=== PATIENT | female | born 1970 | race African-American/Black ===

== ENCOUNTER 2018-09-01 15:41 | Emergency (ER) | payer BC ==
[2018-09-01 16:01] VITALS: BP 127/75; PULSE 78; TEMP 97.8; BMI 30.5
--- NOTE | 2018-09-01 16:21 | PDOC ---
History of Present Illness - General Chief Complaint: Pain Stated Complaint: RT FOOT PAIN Time Seen by Provider: 09/01/18 16:14 History Source: Patient Exam Limitations: No Limitations - History of Present Illness Initial Comments: 09/01/18 16:18 While at work yesterday, school, twisted her right ankle. States has worsened today 09/01/18 16:20 Occurred: reports: yesterday Severity: reports: mild, moderate Pain Location: reports: lower extremity (right ankle ) Loss of Consciousness: no loss of consciousness Associated Symptoms (Fall): denies symptoms Past History - Travel Traveled outside of the country in the last 30 days: No Close contact w/someone who was outside of country & ill: No - Past Medical History Allergies/Adverse Reactions: Allergies Allergy/AdvReac Type Severity Reaction Status Date / Time Sulfa (Sulfonamide AdvReac Intermediate Vomiting Verified 09/01/18 15:55 Antibiotics) Home Medications: Ambulatory Orders NK [No Known Home Medication] 09/01/18 COPD: No HTN: Yes - Immunization History Immunization Up to Date: No - Suicide/Smoking/Psychosocial Hx Smoking History: Never smoked Hx Alcohol Use: No Drug/Substance Use Hx: No Review of Systems - Review of Systems Able to Perform ROS?: Yes Is the patient limited Peruvian proficient: Yes Constitutional: Yes: Symptoms Reported, See HPI HEENTM: No: Symptoms Reported Respiratory: No: Symptoms reported Musculoskeletal: Yes: Symptoms Reported, See HPI, Joint Pain, Joint Swelling All Other Systems: Reviewed and Negative *Physical Exam - Vital Signs Last Vital Signs Temp Pulse Resp BP Pulse Ox 97.8 F 78 18 127/75 98 09/01/18 15:56 09/01/18 15:56 09/01/18 15:56 09/01/18 15:56 09/01/18 15:56 - Physical Exam General Appearance: Yes: Nourished, Appropriately Dressed, Apparent Distress, Mild Distress HEENT: positive: GEOVANNA, Normal ENT Inspection, TMs Normal, Pharynx Normal, Nasal Congestion Respiratory/Chest: positive: Lungs Clear Musculoskeletal: positive: Normal Inspection, CVA Tenderness Extremity: positive: Normal Capillary Refill, Normal Range of Motion (limited secondary to tenderness to lateral malleolus, no crepitus or step-off negative squeeze test, no point tenderness to navicular or fifth metatarsal. Is ambulatory but walks with limp. 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 Marcos, Aircast provided and patient will obtain cane at pharmacy. *DC/Admit/Observation/Transfer Diagnosis at time of Disposition: Right ankle sprain Qualifiers: Encounter type: initial encounter Involved ligament of ankle: unspecified ligament Qualified Code(s): S93.401A - Sprain of unspecified ligament of right ankle, initial encounter - Discharge Dispostion Disposition: HOME Condition at time of disposition: Stable Decision to Admit order: No - Referrals Referrals: Tru Joy MD [Primary Care Provider] - Hugo Jain MD [Staff Physician] - - Patient Instructions Printed Discharge Instructions: DI for Ankle Sprain Additional Instructions: Rest, ice to area on and off for 15 minutes 4-6 times a day Avoid heavy lifting or exercise until pain and swelling is resolved or until further directed Keep area highly elevated to reduce swelling Use splints/Marcos wrap as directed Followup with orthopedist in one to 2 days if not improving, if significantly improved may wait one week for followup with orthopedist May use ibuprofen every 6 hours as needed for pain - Post Discharge Activity Forms/Work/School Notes: Back to Work
== END 2018-09-01 16:48 | disposition home or self-care (01) ==
LOC: JERFT 15:41
DX: S93.401A Sprain of unspecified ligament of right ankle, initial encounter (principal); X58.XXXA Exposure to other specified factors, initial encounter; Y93.89 Activity, other specified; Y92.89 Other specified places as the place of occurrence of the external cause
CPT/HCPCS: 73610-TC-RT-FY; 99281-25